=== PATIENT | female | born 1960 | race Caucasian/White ===

== ENCOUNTER 2017-04-12 19:12 | Emergency (ER) | payer MEDICARE, OTHER ==
[2017-04-12 19:32] VITALS: BP 145/104
--- NOTE | 2017-04-12 20:44 | EDM.PDOC ---
ED HPI GENERAL MEDICAL PROBLEM - General Chief Complaint: Genitourinary Problem Stated Complaint: PAINFUL URINATION Time Seen by Provider: 04/12/17 19:22 Source of Information: Reports: Patient, RN Notes Reviewed History Limitations: Reports: No Limitations - History of Present Illness INITIAL COMMENTS - FREE TEXT/NARRATIVE: The patient states that she and her drove to [place], then drove back this past 04/09/2017. She states that she held onto her urine too long during the drive, and has developed dysuria. She increased her water intake, which improved her symptoms yesterday, but then she developed suprapubic pain and dysuria despite increased water intake today. She notes that her urine is malodorous today. She has urinary urgency and may have urinary frequency. Her suprapubic pain is worse if she is sitting, better if she is supine. The pain does not radiate. No lower back or flank pain. The patient has had similar symptoms in the past, due to a UTI. The patient's PCP is Luis Martin - she has not contacted him about this issue. 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 Bladder Pain Score (Numeric/FACES): 5 - Related Data Allergies Allergy/AdvReac Type Severity Reaction Status Date / Time Penicillins Allergy Mild Rash Verified 04/12/17 19:32 Home Meds: Home Meds Albuterol Sulfate [Proventil Hfa] 1 - 2 puff IH Q4HR PRN 01/30/16 [History] Pantoprazole Sodium [Protonix] 40 mg PO DAILY 01/30/16 [History] Fish Oil/Rosebud-3 Fatty Acids [Fish Oil 1,000 MG] 1 cap PO DAILY 05/19/16 [ History] Acetaminophen [Tylenol] 650 mg PO Q4H PRN #0 tablet 05/21/16 [Rx] Acetaminophen/oxyCODONE [Percocet 325-5 MG] 1 tab PO Q8H PRN #20 tablet [Rx] Past Medical History HEENT History: Reports: Impaired Vision Other HEENT History: wears glasses Gastrointestinal History: Reports: Colon Polyp, GERD, PUD Genitourinary History: Reports: Urinary Incontinence 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: Musculoskeletal History: Reports: Osteoarthritis (knees) Endocrine/Metabolic History: Reports: Diabetes, Type II, Obesity/BMI 30+ - Past Surgical History GI Surgical History: Reports: Appendectomy, Cholecystectomy, Hernia, Abdominal Female Surgical History: Reports: Hysterectomy, Salpingo-Oophorectomy Musculoskeletal Surgical History: Reports: ORIF (right ankle) Social & Family History - Family History HEENT: Reports: Cataract Cardiac: Reports: High Cholesterol, Other (See Below) Other Cardiac Family History: baby born with heart problems who at approx 4 months of age Respiratory: Reports: Sleep Apnea OBGYN: Reports: Dysfunctional uterine bleeding Musculoskeletal: Reports: Gout, Osteoarthritis Neurological: Reports: Alzheimers Disease Endocrine/Metabolic: Reports: Diabetes, Type I Hematologic: Reports: Bleeding Disorder Oncologic: Reports: Bladder, Breast, Cervix, Colon - Tobacco Use Smoking Status *Q: Current Some Day Smoker Years of Tobacco use: 45 Packs/Tins Daily: 0.1 Packs/Tins Daily Comment: Down from 4 ppd - Caffeine Use Caffeine Use: Reports: Coffee - Alcohol Use Alcohol Use History: Yes Days Per Week of Alcohol Use: 0 Alcohol Use Frequency: Rarely - Recreational Drug Use Recreational Drug Use: No - Living Situation & Occupation Living situation: Reports: , with Significant Other Occupation: Unemployed ED ROS GENERAL - Review of Systems Review Of Systems: See Below Constitutional: Reports: No Symptoms HEENT: Reports: No Symptoms Respiratory: Reports: No Symptoms Cardiovascular: Reports: No Symptoms Endocrine: Reports: No Symptoms GI/Abdominal: Reports: No Symptoms : Reports: No Symptoms Musculoskeletal: Reports: No Symptoms Skin: Reports: No Symptoms Neurological: Reports: No Symptoms Psychiatric: Reports: No Symptoms Hematologic/Lymphatic: Reports: No Symptoms Immunologic: Reports: No Symptoms ED EXAM, RENAL/ - Physical Exam Exam: See Below Exam Limited By: No Limitations General Appearance: Alert, WD/WN, No Apparent Distress Eye Exam: Bilateral Eye: Normal Inspection Ears: Normal External Exam, Hearing Grossly Normal Nose: Normal Inspection, No Blood Throat/Mouth: Normal Inspection, Normal Lips, Normal Voice, No Airway Compromise Head: Atraumatic, Normocephalic Neck: Normal Inspection, Full Range of Motion Respiratory/Chest: No Respiratory Distress, Lungs Clear, Normal Breath Sounds, No Accessory Muscle Use Cardiovascular: Normal Peripheral Pulses, Regular Rate, Rhythm, No Gallop, No JVD, No Murmur, No Rub GI/Abdominal: Normal Bowel Sounds, Soft, No Organomegaly, No Distention, No Abnormal Bruit, No Mass, Tender (Suprapubic only. Nontender elsewhere.), Other ( Obese) (Female) Exam: Deferred Rectal (Female) Exam: Deferred Back Exam: Normal Inspection, Full Range of Motion. No: CVA Tenderness (L), CVA Tenderness (R) Extremities: Normal Inspection, Normal Range of Motion, No Pedal Edema, Normal Capillary Refill Neurological: Alert, Oriented, Normal Cognition, No Motor/Sensory Deficits Psychiatric: Normal Affect Skin Exam: Warm, Dry, Intact, Normal Color, No Rash Lymphatic: No Adenopathy Course - Vital Signs Last Recorded V/S: Last Vital Signs Temp 36.1 C 04/12/17 19:30 Pulse 102 H 04/12/17 19:30 Resp 16 04/12/17 19:30 BP 145/104 H 04/12/17 19:30 Pulse Ox 98 04/12/17 19:30 - Orders/Labs/Meds Labs: Laboratory Tests 04/12/17 Range/Units 20:07 Urine Color Yellow (Yellow) Urine Appearance Clear (Clear) Urine pH 5.5 (5.0-8.0) Ur Specific [place] > or = 1.030 (1.005-1.030) Urine Protein Negative (Negative) Urine Glucose (UA) Negative (Negative) Urine Ketones Negative (Negative) Urine Occult Blood Negative (Negative) Urine Nitrite Negative (Negative) Urine Bilirubin Negative (Negative) Urine Urobilinogen 0.2 (0.2-1.0) Ur Leukocyte Esterase Negative (Negative) Urine RBC Not seen (0-5) /hpf Urine WBC 0-5 (0-5) /hpf Ur Epithelial Cells 0-5 (0-5) /hpf Urine Bacteria Not seen (FEW) /hpf Urine Mucus Not seen (FEW) /hpf - Re-Assessments/Exams Free Text/Narrative Re-Assessment/Exam: 04/12/17 20:40 Urinalysis results discussed with the patient. The patient's urine is completely normal, with no suggestion of a UTI. Her symptoms are most likely due to interstitial cystitis. I will have her take [id number] Azo, and refer her to Dr. Summers for further evaluation. Departure - Departure Time of Disposition: 20:41 Disposition: Home, Self-Care 01 Condition: Good Clinical Impression: Interstitial cystitis - Discharge Information Instructions: Interstitial Cystitis Referrals: Luis Martin PA-C [Primary Care Provider] - Ryland Summers MD [Physician] - Forms: ED Department Discharge Additional Instructions: You were seen in the emergency room for painful urination and lower central abdominal pain. Evaluation in the ER included a urinalysis, which returned completely normal. You do not have a UTI. Your symptoms are MOST LIKELY due to a condition called interstitial cystitis = irritation of the bladder without a UTI. We recommend you take [id number] "Azo". You may take a total of 6 doses, either 3 doses a day for 2 days, or 2 doses a day for 3 days. Azo will turn your urine orange - this is normal. Stay adequately hydrated, however, we recommend you abstain from consuming any caffeine presently. Follow-up with the Urologist Dr. Summers at the next available appointment. If any other problems, please do not hesitate to return to the ER.
== END 2017-04-12 20:55 | disposition home or self-care (01) ==
LOC: JD.ED 19:12
DX: N30.10 Interstitial cystitis (chronic) without hematuria (principal); K21.9 Gastro-esophageal reflux disease without esophagitis; E11.9 Type 2 diabetes mellitus without complications; E66.9 Obesity, unspecified; M17.0 Bilateral primary osteoarthritis of knee; Z90.49 Acquired absence of other specified parts of digestive tract; Z90.710 Acquired absence of both cervix and uterus; Z98.890 Other specified postprocedural states; F17.210 Nicotine dependence, cigarettes, uncomplicated; Z79.899 Other long term (current) drug therapy; Z88.0 Allergy status to penicillin; Z68.42 Body mass index [BMI] 45.0-49.9, adult
CPT/HCPCS: 81001; 99283; P9612; 99282

== ENCOUNTER 2017-07-12 06:58 | Day surgery (SDC) | payer MEDICARE, OTHER ==
[~2017-07-12 06:58] MED LIST: Lactated Ringers 1,000 ML IV SCH; Lidocaine 1%/Sod Bicarbonate in NS 8.4% 1 ML Syringe PRN; Sodium Chloride 0.9% 10 ML Syringe FLUSH PRN
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
[2017-07-12] MEDS ORDERED: Propofol 200 MG/20 ML SDV ONE ×2 (07:42→08:56)
[2017-07-12] MEDS ORDERED: Midazolam 1 MG/ML 2 ML SDV ONE (07:42)
[2017-07-12] MEDS ORDERED: fentaNYL 100 MCG/2 ML SDV ONE (07:42)
--- NOTE | 2017-07-12 08:47 | PCM48HPAN ---
Post Anesthesia Note - EVALUATION WITHIN 48HRS OF ANESTHETIC Vital Signs in Normal Range: Yes Patient Participated in Evaluation: Yes Respiratory Function Stable: Yes Airway Patent: Yes Cardiovascular Function Stable: Yes Hydration Status Stable: Yes Pain Control Satisfactory: Yes Nausea and Vomiting Control Satisfactory: Yes Mental Status Recovered: Yes
--- NOTE | 2017-07-12 08:50 | PCM.OPNOTE ---
- General Post-Op/Procedure Note Date of Surgery/Procedure: 07/12/17 Operative Procedure(s): egd with bx/colonoscopy Pre Op Diagnosis: rectal bleeding dysphagia Post-Op Diagnosis: Same Anesthesia Technique: MAC Primary Surgeon: Ryan Santacruz EBL in mLs: 0 Complications: None Condition: Good
[2017-07-12 10:28] VITALS: BP 120/73
--- NOTE | 2017-07-13 09:51 | OR ---
DATE OF OPERATION: 07/12/2017 SURGEON: Ryan Santacruz MD PREOPERATIVE DIAGNOSIS: Rectal bleeding. POSTOPERATIVE DIAGNOSIS: Rectal bleeding. OPERATION PERFORMED: Diagnostic colonoscopy. FINDINGS: Internal hemorrhoids. There were no angiodysplasias, neoplasias, large tumor masses, ulcerations, or diverticulum. The prep was [place] cleansing score grade B. Areas in the sigmoid colon and rectum could not be completely evacuated because of the coarse fecal matter that plugged the channel. ANESTHESIA: Procedure done under IV sedation. DESCRIPTION OF PROCEDURE: The patient was taken to the operating room. Having been placed in a supine position and connected to monitoring equipment, given IV sedation for upper GI endoscopy, this was continued for colonoscopy. She was placed in the left lateral position. Perianal area showed pouting hemorrhoids. Rectal exam showed good sphincter tone. A video Olympus colonoscope was then introduced into the rectum and threaded up without problem to the cecum, where the ileocecal valve was noted. Prep was good throughout the colon. [place] cleansing score grade B. The scope was slowly withdrawn showing the cecum, ascending colon, transverse colon, descending colon, sigmoid colon, and rectum. Retroflexed view could not be done because of the fecal matter. The patient tolerated the procedure. Internal hemorrhoids were felt to be the source of rectal bleeding. She will be followed up in the clinic. She was sent to the recovery room in a stable condition. ESTIMATED BLOOD LOSS: MMODAL /[id number]
--- NOTE | 2017-07-13 09:51 | OR ---
DATE OF OPERATION: 07/12/2017 SURGEON: Rayn Santacruz MD PREOPERATIVE DIAGNOSIS: Gastroesophageal reflux disease and dysphagia. POSTOPERATIVE DIAGNOSIS: Gastroesophageal reflux disease and dysphagia. OPERATION PERFORMED: Esophagogastroduodenoscopy with biopsy done under IV sedation. FINDINGS: Hiatal hernia at GE junction located at 35 cm with area of irregularity with advanced gastric mucosa for about 1 cm. This area was biopsied. Second portion of the duodenum, duodenal bulb, pyloric channel, antrum, body, and cardia and fundus of the stomach and balance of the esophagus did not show any abnormality. DESCRIPTION OF PROCEDURE: The patient was taken to the endoscopy room, placed in a supine position, connected to monitoring equipment, given IV sedation. The patient was placed in left lateral position. Bite block was inserted. Video Olympus gastroscope placed in the posterior oropharynx. Under direct vision threaded past the cricopharyngeus down the esophagus into the stomach. Stomach was insufflated and the scope passed through the pylorus to the second portion of the duodenum and was then slowly withdrawn showing second portion of the duodenum, duodenal bulb, pyloric channel all normal. Antrum, body and cardia stomach were viewed and were normal. J-maneuver was performed showing the above incompetence hiatus. The scope was withdrawn to the GE junction which was biopsied. The rest of the esophagus viewed as the scope withdrawn. The patient tolerated the procedure. Specimen sent to pathology in a labeled container. The patient's IV sedation continued and will get rid of the wound care. The patient's IV sedation will be continued for colonoscopy. ANESTHESIA: ESTIMATED BLOOD LOSS: MMODAL /[id number]
== END 2017-07-12 09:51 | disposition home or self-care (01) ==
LOC: JD.SDS 06:58
PROVIDERS: ATTEND Surgery
DX: K64.8 Other hemorrhoids (principal); K44.9 Diaphragmatic hernia without obstruction or gangrene; Z88.0 Allergy status to penicillin; Z88.1 Allergy status to other antibiotic agents; E78.00 Pure hypercholesterolemia, unspecified; J44.9 Chronic obstructive pulmonary disease, unspecified; K21.9 Gastro-esophageal reflux disease without esophagitis; J18.9 Pneumonia, unspecified organism; E11.9 Type 2 diabetes mellitus without complications; E66.9 Obesity, unspecified; Z90.49 Acquired absence of other specified parts of digestive tract; Z90.710 Acquired absence of both cervix and uterus; Z98.890 Other specified postprocedural states; F17.210 Nicotine dependence, cigarettes, uncomplicated; Z79.899 Other long term (current) drug therapy; Z68.43 Body mass index [BMI] 50.0-59.9, adult
CPT/HCPCS: 43239; 45378; J2250; J3010; J7120; 00810; 88305; J2704

== ENCOUNTER 2018-02-12 12:52 | Emergency (ER) | payer MEDICARE, OTHER ==
[2018-02-12 13:04] VITALS: BP 149/87
[2018-02-12] MEDS ORDERED: Sodium Chloride 0.9% 1,000 ML IV STA (13:10)
[2018-02-12] MEDS ORDERED: Ondansetron 4 MG/2 ML SDV IVPUSH ONE (13:10)
[2018-02-12] MEDS ORDERED: Sodium Chloride 0.9% 10 ML Syringe FLUSH PRN (13:10)
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
== END 2018-02-12 17:05 | disposition home or self-care (01) ==
LOC: JD.ED 12:52
DX: R19.7 Diarrhea, unspecified (principal); E78.00 Pure hypercholesterolemia, unspecified; K21.9 Gastro-esophageal reflux disease without esophagitis; E11.9 Type 2 diabetes mellitus without complications; Z88.0 Allergy status to penicillin; Z88.1 Allergy status to other antibiotic agents; Z79.899 Other long term (current) drug therapy; Z87.891 Personal history of nicotine dependence
CPT/HCPCS: 36415; 80053; 81001; 83690; 85025; 96361; 96374; 99284; J2405; J7040; J7050

== ENCOUNTER 2019-02-08 19:26 | Emergency (ER) | payer MEDICARE, OTHER ==
[2019-02-08 19:44] VITALS: BP 141/95
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
--- NOTE | 2019-02-09 09:43 | CR ---
Chest: Two views of the chest were obtained. Comparison: Previous chest x-ray of 08/26/16. Heart size and mediastinum are normal. Lungs are clear. Slight degenerative change is noted within the spine. Impression: 1. Nothing acute is appreciated on two-view chest x-ray. Diagnostic code #1
== END 2019-02-08 21:45 | disposition home or self-care (01) ==
LOC: JD.ED 19:26
DX: M54.6 Pain in thoracic spine (principal); E11.9 Type 2 diabetes mellitus without complications; E66.9 Obesity, unspecified; K21.9 Gastro-esophageal reflux disease without esophagitis; Z90.49 Acquired absence of other specified parts of digestive tract; Z90.710 Acquired absence of both cervix and uterus; Z79.899 Other long term (current) drug therapy; Z88.0 Allergy status to penicillin
CPT/HCPCS: 36415; 71046; 71046-26; 80053; 83735; 84484; 85007; 85027; 93005; 93010; 99283; 99284-25

== ENCOUNTER 2019-02-09 11:19 | Day surgery (SDC) | payer MEDICARE, OTHER ==
[~2019-02-09 11:19] MED LIST changes: +Cefuroxime 10 MG/ML SYRINGE EYELF SCH; -Lactated Ringers 1,000 ML IV SCH; +Lidocaine 1% PF 2 ML SDV INJECT SCH; -Lidocaine 1%/Sod Bicarbonate in NS 8.4% 1 ML Syringe PRN; +Pilocarpine 4% Ophth Soln 15 ML Bot EYELF SCH; -Sodium Chloride 0.9% 10 ML Syringe FLUSH PRN
[2019-02-09] MEDS: Polymyxin B/Trimethoprim 10 ML Bottle EYELF SCH ×3 (11:32→13:03)
[2019-02-09] MEDS: Brimonidine 0.2% Ophth Soln 5 ML Bottle EYELF SCH ×3 (11:38→13:03)
[2019-02-09] MEDS: Phenylephrine 2.5% Ophth Soln 2 ML Bot EYELF SCH ×5 (11:43→12:48)
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
[2019-02-09] MEDS: Tropicamide 1% Ophth Soln 15 ML Bottle EYELF SCH ×4 (11:49→12:30)
[2019-02-09] MEDS: Tetracaine HCl/PF 0.5% 4 ML Bottle EYELF SCH ×4 (12:35→12:58)
--- NOTE | 2019-02-09 13:12 | PCM.POSTAN ---
POST ANESTHESIA ASSESSMENT - MENTAL STATUS Mental Status: Alert - CARDIOVASCULAR CV Status: Pulse Rate WNL - GASTROINTESTINAL GI Status: No Symptoms - POST OP HYDRATION Hydration Status: Adequate & Stable
--- NOTE | 2019-02-09 13:13 | PCM48HPAN ---
Post Anesthesia Note - EVALUATION WITHIN 48HRS OF ANESTHETIC Patient Participated in Evaluation: Yes Respiratory Function Stable: Yes Airway Patent: Yes Cardiovascular Function Stable: Yes Hydration Status Stable: Yes Pain Control Satisfactory: Yes Nausea and Vomiting Control Satisfactory: Yes Mental Status Recovered: Yes Resp Rate: 16
[2019-02-09 13:21] VITALS: BP 151/47
== END 2019-02-09 13:18 | disposition home or self-care (01) ==
LOC: JD.SDS 11:19
PROVIDERS: ATTEND Ophthalmology
DX: H25.813 Combined forms of age-related cataract, bilateral (principal); H35.371 Puckering of macula, right eye; H02.834 Dermatochalasis of left upper eyelid; H02.831 Dermatochalasis of right upper eyelid; H02.413 Mechanical ptosis of bilateral eyelids; H16.103 Unspecified superficial keratitis, bilateral; H16.223 Keratoconjunctivitis sicca, not specified as Sjogren's, bilateral; E11.9 Type 2 diabetes mellitus without complications; E78.00 Pure hypercholesterolemia, unspecified; J44.9 Chronic obstructive pulmonary disease, unspecified; K21.9 Gastro-esophageal reflux disease without esophagitis; F17.210 Nicotine dependence, cigarettes, uncomplicated; Z88.0 Allergy status to penicillin; Z79.899 Other long term (current) drug therapy
CPT/HCPCS: 66984; C1780; J0697; J2001

== ENCOUNTER 2019-03-06 11:24 | Day surgery (SDC) | payer MEDICARE, OTHER ==
[~2019-03-06 11:24] MED LIST changes: +Brimonidine 0.2% Ophth Soln 5 ML Bottle EYERT SCH; -Cefuroxime 10 MG/ML SYRINGE EYELF SCH; -Lidocaine 1% PF 2 ML SDV INJECT SCH; -Pilocarpine 4% Ophth Soln 15 ML Bot EYELF SCH
[2019-03-06] MEDS: Polymyxin B/Trimethoprim 10 ML Bottle EYERT SCH ×4 (12:58→14:30)
[2019-03-06] MEDS: Brimonidine 0.2% Ophth Soln 15 ML Bottle EYERT SCH ×4 (13:03→14:30)
[2019-03-06] MEDS: Phenylephrine 2.5% Ophth Soln 2 ML Bot EYERT SCH ×6 (13:08→14:12)
[2019-03-06] MEDS: Tropicamide 1% Ophth Soln 15 ML Bottle EYERT SCH ×4 (13:13→13:57)
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
[2019-03-06] MEDS: Lidocaine 1% PF 2 ML SDV INJECT SCH ×2 (13:18→14:16)
[2019-03-06] MEDS: Pilocarpine 4% Ophth Soln 15 ML Bot EYERT SCH ×2 (13:19→14:30)
[2019-03-06] MEDS: Tetracaine HCl/PF 0.5% 4 ML Bottle EYERT SCH ×3 (13:19→14:25)
[2019-03-06] MEDS: Cefuroxime 10 MG/ML SYRINGE EYERT SCH ×2 (13:19→14:28)
--- NOTE | 2019-03-06 14:39 | PCM48HPAN ---
Post Anesthesia Note - EVALUATION WITHIN 48HRS OF ANESTHETIC Vital Signs in Normal Range: Yes Patient Participated in Evaluation: Yes Respiratory Function Stable: Yes Airway Patent: Yes Cardiovascular Function Stable: Yes Hydration Status Stable: Yes Pain Control Satisfactory: Yes Nausea and Vomiting Control Satisfactory: Yes Mental Status Recovered: Yes Pulse Rate: 75 SaO2: 100 Resp Rate: 16 Temperature: 98.9 C Blood Pressure: 130/65
[2019-03-06 15:19] VITALS: BP 129/70
== END 2019-03-06 15:06 | disposition home or self-care (01) ==
LOC: JD.SDS 11:24
PROVIDERS: ATTEND Ophthalmology
DX: H25.811 Combined forms of age-related cataract, right eye (principal); H35.371 Puckering of macula, right eye; H02.834 Dermatochalasis of left upper eyelid; H02.831 Dermatochalasis of right upper eyelid; H57.813 Brow ptosis, bilateral; H16.103 Unspecified superficial keratitis, bilateral; H16.223 Keratoconjunctivitis sicca, not specified as Sjogren's, bilateral; E78.00 Pure hypercholesterolemia, unspecified; K21.9 Gastro-esophageal reflux disease without esophagitis; J44.9 Chronic obstructive pulmonary disease, unspecified; E11.9 Type 2 diabetes mellitus without complications; F17.210 Nicotine dependence, cigarettes, uncomplicated; E66.9 Obesity, unspecified; Z68.42 Body mass index [BMI] 45.0-49.9, adult; Z96.1 Presence of intraocular lens; Z98.890 Other specified postprocedural states; Z79.899 Other long term (current) drug therapy; Z79.51 Long term (current) use of inhaled steroids; Z88.0 Allergy status to penicillin
CPT/HCPCS: 66984; J0697; J2001; C1780

== ENCOUNTER 2019-03-13 18:08 | Emergency (ER) | payer MEDICARE, OTHER ==
[2019-03-13 18:30] VITALS: BP 144/79
[2019-03-13] MEDS ORDERED: Acetaminophen/HYDROcodone 325-5 MG Tab PO ONE (18:34)
--- NOTE | 2019-03-13 18:44 | EDM.PDOC ---
ED HPI GENERAL MEDICAL PROBLEM - General Chief Complaint: Lower Extremity Injury/Pain Stated Complaint: L KNEE PAIN/FALL Time Seen by Provider: 03/13/19 18:17 Source of Information: Reports: Patient, RN Notes Reviewed History Limitations: Reports: No Limitations - History of Present Illness INITIAL COMMENTS - FREE TEXT/NARRATIVE: The patient states that she tripped and fell in her home parking lot around 15: 00 this afternoon, landing on her left leg and injuring her left knee. She states that she was wearing slippers. She states that she was able to ambulate inside, but that her left knee pain got worse. She was able to drive herself to the ED, but states that her left knee pain is constant, made worse with weightbearing and ambulation. In addition to left leg pain, the patient also reports an abrasion to her right first MTP joint, as well as a skin tear to her left forearm. 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 The patient's PCP is ANNA Velasquez. Left Lower Leg Pain Score (Numeric/FACES): 10 - Related Data Allergies Allergy/AdvReac Type Severity Reaction Status Date / Time Penicillins Allergy Mild Rash Verified 03/13/19 18:19 Home Meds: Home Meds Pantoprazole Sodium [Protonix] 40 mg PO BID 01/30/16 [History] Sucralfate [Carafate] 1 gm PO QID PRN 07/09/17 [History] Albuterol [Proventil HFA] 1 - 2 puff INH Q4H PRN 02/08/19 [History] Cholecalciferol (Vitamin D3) [Vitamin D3] 1,000 unit PO DAILY 02/08/19 [History] Vit A/Vit C/Vit E/Zinc/Copper [Preservision Areds Softgel] 1 tab PO Q48H [History] atorvaSTATin Calcium [Atorvastatin Calcium] 40 mg PO DAILY 02/08/19 [History] Fluticasone/Salmeterol [Advair 500-50] 1 puff INH ASDIRECTED PRN 03/13/19 [ History] Tetrahydrz/Dext 70/Peg 400/Pvp [Eye Drops] 15 ml OP QID 03/13/19 [History] Past Medical History HEENT History: Reports: Impaired Vision Other HEENT History: wears glasses, has upper denture Cardiovascular History: Reports: High Cholesterol Respiratory History: Reports: COPD Gastrointestinal History: Reports: Colon Polyp, GERD, Hiatal Hernia, PUD Genitourinary History: Reports: Urinary Incontinence 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: Musculoskeletal History: Reports: Fracture (right ankle), Osteoarthritis ( bilateral knees) Endocrine/Metabolic History: Reports: Diabetes, Type II, Obesity/BMI 30+ - Past Surgical History HEENT Surgical History: Reports: Cataract Surgery (bilateral) GI Surgical History: Reports: Appendectomy, Cholecystectomy (1993), Colonoscopy (x 5), EGD (x 4), Hernia, Abdominal Female Surgical History: Reports: Hysterectomy (complete), Salpingo- Oophorectomy (bilateral) Musculoskeletal Surgical History: Reports: ORIF (right ankle) Social & Family History - Family History Family Medical History: Noncontributory HEENT: Reports: Cataract Cardiac: Reports: High Cholesterol, Other (See Below) Other Cardiac Family History: baby born with heart problems who at approx 4 months of age Respiratory: Reports: Sleep Apnea OBGYN: Reports: Dysfunctional uterine bleeding Musculoskeletal: Reports: Gout, Osteoarthritis Neurological: Reports: Alzheimers Disease Endocrine/Metabolic: Reports: Diabetes, Type I Hematologic: Reports: Bleeding Disorder Oncologic: Reports: Bladder, Breast, Cervix, Colon - Tobacco Use Smoking Status *Q: Current Some Day Smoker Years of Tobacco use: 47 Packs/Tins Daily: 0.2 Packs/Tins Daily Comment: Down from 4 ppd - Caffeine Use Caffeine Use: Reports: Coffee - Alcohol Use Alcohol Use History: Yes Date/Time of Last Drink Comment: 2016 - Recreational Drug Use Recreational Drug Use: No - Living Situation & Occupation Living situation: Reports: , with Significant Other (Boyfriend) Occupation: Unemployed Review of Systems - Review of Systems Review Of Systems: ROS reveals no pertinent complaints other than HPI. ED EXAM, GENERAL - Physical Exam Exam: See Below Exam Limited By: No Limitations General Appearance: Alert, WD/WN, Mild Distress (Appears uncomfortable) Extremities: Other (The left knee is swollen, when compared to the right, and there is a subtle abrasion to the anterolateral left knee, although no ecchymosis is seen. The patient denies tenderness to the quadriceps tendon, although reports some tenderness to the patellar tendon and anterior patella. No tenderness to the medial knee, but she has mild tenderness to the lateral knee and posterior knee. She reports pain with flexion, and I am unable to flex the knee beyond 90, due to pain. Stressing of the medial and lateral collateral ligaments is negative, as is the anterior and posterior drawer sign. The patient reports mild tenderness to palpation of the tibia, but palpation of the tibia does not induce pain in the knee. She reports pain radiating down her leg, however, the examination of her left ankle is completely normal. Neurovascular status of her left lower extremity is intact. There is a small abrasion to the medial aspect of her right first MTP joint. There is an approximately 2 cm skin tear to her mid left forearm.) Course - Vital Signs Last Recorded V/S: Last Vital Signs Temp 36.4 C 03/13/19 18:27 Pulse 95 03/13/19 18:27 Resp 18 03/13/19 18:27 BP 144/79 H 03/13/19 18:27 Pulse Ox 95 03/13/19 18:27 - Orders/Labs/Meds Orders: Active Orders 24 hr Category Date Time Status Knee 3V Lt [CR] Stat Exams 03/13/19 18:34 Ordered Tibia Fibula Lt [CR] Stat Exams 03/13/19 18:34 Ordered Meds: Medications Discontinued Medications Generic Name Dose Route Start Last Admin Trade Name Freq PRN Reason Stop Dose Admin Hydrocodone Bitart/Acetaminophen 2 tab 03/13/19 18:34 03/13/19 18:40 [place] 325-5 Mg PO 03/13/19 18:35 2 tab ONETIME ONE Administration - Re-Assessments/Exams Free Text/Narrative Re-Assessment/Exam: 03/13/19 18:38 Have ordered x-rays of her left knee and tibia/fibula, to rule out a tibial plateau fracture. While the patient states that pain radiates down to her ankle , her left ankle examination is completely benign. The patient drove herself here, but assured Sobia AGOSTO and me that she can get a ride from her boyfriend, therefore I have ordered 2 tablets of [place]. 03/13/19 20:02 There was a significant delay in acquiring the x-rays, as the vtc technician was involved in a difficult CT angiogram of the chest on another patient. 2-view radiographs of the left knee appear to demonstrate advanced degenerative joint disease, with bone spurs noted at the Ultracet ligament, and a well- rounded piece of bone posterior to the distal fibula, however, no acute fractures or dislocations identified. Formal read per the Radiologist pending. 2 view radiographs of the left tibia/fibula appear to be grossly unremarkable. No fracture or dislocation identified. Formal read per the Radiologist pending. 03/13/19 20:12 X-ray results discussed with the patient, her neighbor, and her boyfriend. As above, the patient's trays are negative for an acute injury. She appears to have contused her left knee. Because she has pain with weightbearing and ambulation, I recommended that we fit her for crutches, but the patient states that she is simply too uncoordinated to be able to use crutches, and that she will fall down. She states that she cannot even use a walker. She prefers a knee immobilizer. I am recommending ice, elevation, ibuprofen, and follow-up with Dr. Gonzales at the next available appointment. Departure - Departure Time of Disposition: 20:13 Disposition: Home, Self-Care 01 Condition: Good Clinical Impression: Contusion of left knee, Skin tear of left forearm without complication, Abrasion of right foot - Discharge Information *PRESCRIPTION DRUG MONITORING PROGRAM REVIEWED*: Not Applicable *COPY OF PRESCRIPTION DRUG MONITORING REPORT IN PATIENT GUY: Not Applicable Referrals: Tatum Ndiaye PA-C [Primary Care Provider] - Trey Gonzales MD [Physician] - Forms: ED Department Discharge Additional Instructions: You were seen in the emergency room after tripping and falling in your parking lot, injuring your right knee, right foot, and left forearm. Workup in the ER included x-rays of your left knee and left leg. Your x-rays show advanced arthritis in the knee, but no broken bones or dislocations. Based on your history, physical exam, and ER x-rays, you have most likely contused (bruised) your left knee. Crutches were offered, but declined. You have been placed into a knee immobilizer. The knee immobilizer goes over your clothes, and should be placed in the morning, and removed at bedtime. Try to ice and elevate your left knee as much as possible over the next 48 hours , to help minimize swelling. Keep your left forearm skin tear clean with ordinary soap and water when you bathe, daily. Dress with a fresh nonstick bandage. Take [id number] ibuprofen, 3-4 tablets (600-800 mg) every 8 hours, with food, as needed for discomfort. Follow-up with the Orthopedic Surgeon Dr. Trey Gonzales at the next available appointment. If any other problems, please do not hesitate to return to the ER. - My Orders Last 24 Hours: My Active Orders 03/13/19 18:34 Knee 3V Lt [CR] Stat Tibia Fibula Lt [CR] Stat - Assessment/Plan Last 24 Hours: My Active Orders 03/13/19 18:34 Knee 3V Lt [CR] Stat Tibia Fibula Lt [CR] Stat
--- NOTE | 2019-03-14 07:26 | CR ---
Left knee: AP, lateral and sunrise patellar views of the left knee were obtained. Comparison: Previous left knee exam is not available. Severe medial joint space narrowing is noted with medial osteophytes. Lateral joint space is preserved with lateral osteophytes being present. Osteophytes are noted within the patellofemoral joint. Joint effusion is present. No acute bony abnormality is seen. Impression: 1. Degenerative change and joint effusion. Diagnostic code #3
--- NOTE | 2019-03-14 08:06 | CR ---
Left tibia and fibula: AP and lateral views of left tibia and fibula were obtained. Degenerative change is again noted within the left knee with joint effusion. No discrete fracture or other abnormality is appreciated. Impression: 1. Findings within the left knee as described on knee exam. 2. Nothing acute is seen on left tibia and fibula exam. Diagnostic code #2
== END 2019-03-13 20:30 | disposition home or self-care (01) ==
LOC: JD.ED 18:08
DX: S51.812A Laceration without foreign body of left forearm, initial encounter (principal); S80.02XA Contusion of left knee, initial encounter; S90.811A Abrasion, right foot, initial encounter; J44.9 Chronic obstructive pulmonary disease, unspecified; K21.9 Gastro-esophageal reflux disease without esophagitis; E11.9 Type 2 diabetes mellitus without complications; E66.9 Obesity, unspecified; M19.90 Unspecified osteoarthritis, unspecified site; F17.210 Nicotine dependence, cigarettes, uncomplicated; Z88.0 Allergy status to penicillin; Z79.899 Other long term (current) drug therapy; Z98.41 Cataract extraction status, right eye; Z98.42 Cataract extraction status, left eye; Z90.49 Acquired absence of other specified parts of digestive tract; Z90.710 Acquired absence of both cervix and uterus; Z90.722 Acquired absence of ovaries, bilateral; W01.0XXA Fall on same level from slipping, tripping and stumbling without subsequent striking against object, initial encounter
CPT/HCPCS: 73562; 73590; 99283; A9270

== ENCOUNTER 2019-08-27 09:22 | Emergency (ER) | payer MEDICARE, OTHER ==
[2019-08-27 09:42] VITALS: BP 150/83; PULSE 86
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
[2019-08-27] MEDS ORDERED: Phenazopyridine 95 MG Tab ONE (10:20)
[2019-08-27] MEDS ORDERED: Levofloxacin 250 MG Tab PO ONE (11:18)
[2019-08-27] MEDS ORDERED: Phenazopyridine 95 MG Tab PO ONE (11:19)
[2019-08-27] MEDS ORDERED: Phenazopyridine 95 MG Tab PO SCH (13:00)
--- NOTE | 2019-08-28 06:32 | CR ---
Abdomen: Supine view of the abdomen was obtained. Comparison: Prior abdominal x-ray of 11/17/11. Prior cholecystectomy is noted. Bowel gas pattern is normal. No abnormal calcifications or soft tissue abnormality is seen. Bony structures are unremarkable. Impression: 1. Nothing acute is seen on supine abdominal x-ray. Diagnostic code #2 This report was dictated in [place] Standard Time
== END 2019-08-27 11:40 | disposition home or self-care (01) ==
LOC: JD.ED 09:22
DX: K59.01 Slow transit constipation (principal); N39.0 Urinary tract infection, site not specified; E78.00 Pure hypercholesterolemia, unspecified; J44.9 Chronic obstructive pulmonary disease, unspecified; K21.9 Gastro-esophageal reflux disease without esophagitis; M19.90 Unspecified osteoarthritis, unspecified site; E11.9 Type 2 diabetes mellitus without complications; E66.9 Obesity, unspecified; Z68.42 Body mass index [BMI] 45.0-49.9, adult; Z90.49 Acquired absence of other specified parts of digestive tract; Z88.0 Allergy status to penicillin; Z79.899 Other long term (current) drug therapy
CPT/HCPCS: 74018; 81001; 87086; 99284; A9270; 99283

== ENCOUNTER 2019-09-07 20:38 | Emergency (ER) | payer MEDICARE, OTHER ==
[2019-09-07 21:16] VITALS: BP 130/84; PULSE 96
[2019-09-07] MEDS ORDERED: Lactated Ringers 1,000 ML IV ONE (22:43)
[2019-09-07] MEDS ORDERED: Loperamide 2 MG Cap PO STA (22:44)
[2019-09-07] MEDS ORDERED: Ondansetron 4 MG/2 ML SDV IVPUSH ONE (22:46)
--- NOTE | 2019-09-07 22:47 | EDM.PDOC ---
ED HPI GENERAL MEDICAL PROBLEM - General Chief Complaint: Gastrointestinal Problem Stated Complaint: DIARRHEA Time Seen by Provider: 09/07/19 21:09 Source of Information: Reports: Patient, Significant Other (Fiance) History Limitations: Reports: No Limitations - History of Present Illness INITIAL COMMENTS - FREE TEXT/NARRATIVE: Ms. Giordaon is a very pleasant 58-year-old woman with a past medical history significant for a hiatal hernia with GERD, peptic ulcer disease, and colon polyps, due states that she developed watery diarrhea yesterday, Wednesday, , along with some nausea. She has not had any emesis, and has not had any abdominal pain. The frequent diarrhea, however, has flared her hemorrhoids, and she has had susanna blood when she wipes, but she denies having bloody diarrhea. She states that she has felt warm, but she has not had a documented fever. She also reports feeling lightheaded when she stands. The patient does not recall eating any bad-tasting or spoiled food recently. No similarly ill close contacts. No recent travel. No prior similar symptoms. The patient states that she was on an antibiotic, likely Levaquin, for 7 or 10 days, about 2 weeks ago, to treat a UTI. The patient states that she took Pepto-Bismol, which has not helped her symptoms at all. The patient's PCP is ANNA Velasquez. The patient has not received an influenza vaccine this season, but agreed to receive one here. Rectal Pain Score (Numeric/FACES): 8 - Related Data Allergies Allergy/AdvReac Type Severity Reaction Status Date / Time Penicillins Allergy Mild Rash Verified 09/07/19 21:13 Home Meds: Home Meds Pantoprazole Sodium [Protonix] 40 mg PO BID 01/30/16 [History] atorvaSTATin Calcium [Atorvastatin Calcium] 40 mg PO DAILY 02/08/19 [History] Ondansetron [Zofran ODT] 1 tab PO Q8H PRN #10 tab.dis 09/08/19 [Rx] Past Medical History HEENT History: Reports: Impaired Vision Other HEENT History: wears glasses, has upper denture Cardiovascular History: Reports: High Cholesterol Gastrointestinal History: Reports: Colon Polyp, GERD, Hemorrhoids, Hiatal Hernia , PUD Genitourinary History: Reports: Urinary Incontinence (stress incontinence) ORIGINATION SPECIALIST History: Reports: Musculoskeletal History: Reports: Fracture (right leg), Osteoarthritis ( bilateral knees) Endocrine/Metabolic History: Reports: Obesity/BMI 30+ - Past Surgical History HEENT Surgical History: Reports: Cataract Surgery GI Surgical History: Reports: Appendectomy, Cholecystectomy (1993), Colonoscopy (x 6 or 7), EGD (x 4), Hernia, Abdominal, Other (See Below) (Repair of "esophageal hernia" - Evelyn fundoplication?) Female Surgical History: Reports: Hysterectomy (complete) Musculoskeletal Surgical History: Reports: ORIF (right leg) Social & Family History - Family History Family Medical History: Noncontributory HEENT: Reports: Cataract Cardiac: Reports: High Cholesterol, Other (See Below) Other Cardiac Family History: baby born with heart problems who at approx 4 months of age Respiratory: Reports: Sleep Apnea OBGYN: Reports: Dysfunctional uterine bleeding Musculoskeletal: Reports: Gout, Osteoarthritis Neurological: Reports: Alzheimers Disease Endocrine/Metabolic: Reports: Diabetes, Type I Hematologic: Reports: Bleeding Disorder Oncologic: Reports: Bladder, Breast, Cervix, Colon - Tobacco Use Smoking Status *Q: Current Some Day Smoker Years of Tobacco use: 47 Packs/Tins Daily Comment: Down from 4 ppd - Caffeine Use Caffeine Use: Reports: Coffee - Alcohol Use Alcohol Use History: Yes Alcohol Use Frequency: Rarely - Recreational Drug Use Recreational Drug Use: No - Living Situation & Occupation Living situation: Reports: , with Significant Other (Fiance) Occupation: Employed ([employer]) ED ROS GENERAL - Review of Systems Review Of Systems: Comprehensive ROS is negative, except as noted in HPI. ED EXAM, GI/ABD - Physical Exam Exam: See Below Exam Limited By: No Limitations General Appearance: Alert, WD/WN, No Apparent Distress Eyes: Bilateral: Normal Appearance, EOMI Ears: Normal External Exam, Hearing Grossly Normal Nose: Normal Inspection Throat/Mouth: Normal Inspection, Normal Lips, Normal Voice, No Airway Compromise Head: Atraumatic, Normocephalic Neck: Normal Inspection, Full Range of Motion Respiratory/Chest: No Respiratory Distress, Lungs Clear, Normal Breath Sounds, No Accessory Muscle Use Cardiovascular: Normal Peripheral Pulses, Regular Rate, Rhythm, No Edema, No Gallop, No JVD, No Murmur, No Rub GI/Abdominal Exam: Normal Bowel Sounds, Soft, Non-Tender, No Organomegaly, No Distention, No Abnormal Bruit, No Mass (Female) Exam: Deferred Rectal (Female) Exam: Deferred Back Exam: Normal Inspection, Full Range of Motion. No: CVA Tenderness (L), CVA Tenderness (R) Extremities: Normal Inspection, Normal Range of Motion, No Pedal Edema, Normal Capillary Refill Neurological: Alert, Oriented, Normal Cognition, No Motor/Sensory Deficits Psychiatric: Normal Affect Skin Exam: Warm, Dry, Intact, Normal Color, No Rash Course - Vital Signs Last Recorded V/S: Last Vital Signs Temp 36.4 C 09/07/19 21:14 Pulse 96 09/07/19 21:14 Resp 18 09/07/19 21:14 BP 130/84 09/07/19 21:14 Pulse Ox 98 09/07/19 21:14 Orthostatic Blood Pressure [ 128/88 Standing] Orthostatic Blood Pressure [ 130/79 Sitting] Orthostatic Blood Pressure [ 108/49 Supine] - Orders/Labs/Meds Orders: Active Orders 24 hr Category Date Time Status Influenza Vaccine Charge [RC] .DISCHARGE Care 09/07/19 23:07 Active Orthostatic Vital Signs [RC] STAT Care 09/07/19 22:43 Active Labs: Laboratory Tests 09/07/19 09/07/19 Range/Units 23:15 23:15 WBC 10.21 H (3.98-10.04) K/mm3 RBC 5.01 (3.98-5.22) M/mm3 Hgb 14.5 (11.2-15.7) gm/dl Hct 44.0 (34.1-44.9) % MCV 87.8 (79.4-94.8) fl MCH 28.9 (25.6-32.2) pg MCHC 33.0 (32.2-35.5) g/dl RDW Std Deviation 46.5 H (36.4-46.3) fL Plt Count 193 (182-369) K/mm3 MPV 11.0 (9.4-12.3) fl Neutrophils % (Manual) 56 (40-60) % Band Neutrophils % 0 (0-10) % Lymphocytes % (Manual) 34 (20-40) % Atypical Lymphs % 0 % Monocytes % (Manual) 5 (2-10) % Eosinophils % (Manual) 5 (0.7-5.8) % Basophils % (Manual) 0 L (0.1-1.2) Platelet Estimate Adequate RBC Morph Comment Normal Sodium 141 (136-145) mEq/L Potassium 4.1 (3.5-5.1) mEq/L Chloride 106 (98-107) mEq/L Carbon Dioxide 26 (21-32) mEq/L Anion Gap 13.1 (5-15) BUN 19 H (7-18) mg/dL Creatinine 0.9 (0.55-1.02) mg/dL Est Cr Clr Drug Dosing 58.12 mL/min Estimated GFR (MDRD) > 60 (>60) mL/min BUN/Creatinine Ratio 21.1 H (14-18) Glucose 114 H (74-106) mg/dL Calcium 9.6 (8.5-10.1) mg/dL Magnesium 1.9 (1.8-2.4) mg/dl Total Bilirubin 0.4 (0.2-1.0) mg/dL AST 15 (15-37) U/L ALT 26 (14-59) U/L Alkaline Phosphatase 90 (46-116) U/L Total Protein 7.1 (6.4-8.2) g/dl Albumin 3.4 (3.4-5.0) g/dl Globulin 3.7 gm/dL Albumin/Globulin Ratio 0.9 L (1-2) Meds: Medications Discontinued Medications Generic Name Dose Route Start Last Admin Trade Name Freq PRN Reason Stop Dose Admin Lactated Ringer's 1,000 mls @ 999 mls/hr 09/07/19 22:43 09/07/19 23:14 Ringers, Lactated IV 09/07/19 23:43 999 mls/hr .BOLUS ONE Administration Influenza Virus Vaccine 60 mcg 09/07/19 23:30 Fluzone Quad [id number] Syringe IM 09/07/19 23:31 .ONCE ONE Loperamide HCl 4 mg 09/07/19 22:44 09/07/19 23:11 Imodium PO 09/07/19 22:45 4 mg ONETIME STA Administration Ondansetron HCl 4 mg 09/07/19 22:46 09/07/19 23:12 Zofran IVPUSH 09/07/19 22:47 4 mg ONETIME ONE Administration - Re-Assessments/Exams Free Text/Narrative Re-Assessment/Exam: 09/07/19 22:45 The patient has watery diarrhea and some nausea, but no recent fever, abdominal pain, or bloody diarrhea. Her diarrhea is most likely viral in etiology, although could potentially be due to a bacterial toxin. I do not suspect a bacterial infection, such as enterotoxigenic Escherichia coli, Salmonella, or Shigella. I have ordered orthostatics, to make sure that the patient has not suffered any significant fluid shifts, as well as some blood work to look for electrolyte abnormalities. In the meantime, the patient will be started on oral loperamide, IV Zofran, and some IV fluid. 09/08/19 00:29 The patient is not orthostatic. Her CBC is remarkable for a WBC count mildly elevated at 10.21, but with 0% bandemia. The remainder of her CBC is unremarkable. Her CMP is remarkable for a BUN slightly elevated at 19, with a normal creatinine of 0.9. Her blood glucose is slightly elevated at 114. The remainder of her CMP is unremarkable. Her magnesium level was within normal limits at 1.9. The patient does not appear to have suffered any significant fluid or electrolyte shifts as a result of her diarrhea. I believe she can safely be discharged home. 09/08/19 00:35 Test results discussed with the patient and her fianc. The patient states that she had another loose bowel movement after she was given the loperamide, therefore I will order an additional 2 mg of loperamide. I will submit a prescription for Zofran. Departure - Departure Time of Disposition: 00:36 Disposition: Home, Self-Care 01 Condition: Good Clinical Impression: Diarrhea, Nausea - Discharge Information *PRESCRIPTION DRUG MONITORING PROGRAM REVIEWED*: Not Applicable *COPY OF PRESCRIPTION DRUG MONITORING REPORT IN PATIENT GUY: Not Applicable Referrals: Tatum Ndiaye PA-C [Primary Care Provider] - Forms: ED Department Discharge Additional Instructions: You were seen in the emergency room after developing diarrhea, with nausea, and blood from hemorrhoids. Workup in the ER included blood work and positional blood pressure checks, all of which were normal. You are not dehydrated. You are not anemic. Your diarrhea was treated with 3 tablets of loperamide in the ER. Loperamide is available [id number]. You may take 1 tablet of loperamide after each loose bowel movement, up to a total of 8 tablets within a 24-hour period. A prescription for the anti-nausea medicine Zofran has been sent to the [facility], located in the [facility] grocery store. Dissolve one tablet of Zofran on your tongue up to every 8 hours, as needed for nausea/vomiting. Stay well hydrated. Gatorade or Powerade are best. You should avoid fruit juices and dairy products, as these may make your diarrhea worse. If you are hungry, we recommend a bland diet, such as rice, oatmeal, or toast. Chicken noodle soup with saltine crackers is an excellent choice. If your symptoms persist, please follow-up with your PCP, ANNA Velasquez. If any other problems, please do not hesitate to return to the ER. Sepsis Event Note - Evaluation Sepsis Screening Result: No Definite Risk - Focused Exam Vital Signs: Vital Signs Temp Pulse Resp BP Pulse Ox 09/07/19 21:14 36.4 C 96 18 130/84 98 Date Exam was Performed: 09/08/19 Time Exam was Performed: 00:29 - My Orders Last 24 Hours: My Active Orders 09/07/19 22:43 Orthostatic Vital Signs [RC] STAT 09/07/19 23:07 Influenza Vaccine Charge [RC] .DISCHARGE - Assessment/Plan Last 24 Hours: My Active Orders 09/07/19 22:43 Orthostatic Vital Signs [RC] STAT 09/07/19 23:07 Influenza Vaccine Charge [RC] .DISCHARGE
[2019-09-07] MEDS ORDERED: FLU Vacc QS2019-20(6MOS+)/PF 60 MCG/0.5 ML SYRINGE IM ONE (23:30)
[2019-09-08] MEDS ORDERED: Loperamide 2 MG Cap PO STA (00:35)
== END 2019-09-08 00:47 | disposition home or self-care (01) ==
LOC: JD.ED 20:38
DX: R19.7 Diarrhea, unspecified (principal); R11.0 Nausea; E78.00 Pure hypercholesterolemia, unspecified; F17.210 Nicotine dependence, cigarettes, uncomplicated; Z79.899 Other long term (current) drug therapy; Z88.0 Allergy status to penicillin; Z90.49 Acquired absence of other specified parts of digestive tract; Z90.710 Acquired absence of both cervix and uterus
CPT/HCPCS: 36415; 80053; 83735; 85007; 85027; 90686; 96374; 99284; A9270; G0008; J2405; J7120

== ENCOUNTER 2020-12-29 20:25 | Emergency (ER) | payer MEDICARE, OTHER ==
[2020-12-29 20:39] VITALS: BP 153/95; PULSE 120
[2020-12-29] MEDS ORDERED: Cefdinir 300 MG Cap PO ONE (21:05)
--- NOTE | 2020-12-29 21:12 | EDM.PDOC ---
ED HPI GENERAL MEDICAL PROBLEM - General Chief Complaint: Genitourinary Problem Stated Complaint: URINATING BLOOD Time Seen by Provider: 12/29/20 20:54 Source of Information: Reports: Patient, RN Notes Reviewed History Limitations: Reports: No Limitations - History of Present Illness INITIAL COMMENTS - FREE TEXT/NARRATIVE: Patient is a 60-year-old female who presents to the ED for evaluation of her voiding blood. Patient notes that she noticed blood in her urine roughly 1 hour ago. She does have a history of this, and was told if this happens, she should get put on an antibiotic as soon as possible. She notes she has been drinking a lot of water since then she notes that she did see blood in her underwear, she does have a hysterectomy as well. She has pain with urinating, and states that her lower abdomen is also tender. She does note a pretty extensive family history of cancer, any urinary tract, and reproductive systems. Her primary care provider Luis Martin. She denies any fevers or chills, cough or shortness of breath, or any sort of nausea/vomiting/diarrhea., to help keep her self hydrated and try to flush the blood out of her system. Bladder Pain Score (Numeric/FACES): 6 - Related Data Allergies Allergy/AdvReac Type Severity Reaction Status Date / Time Penicillins Allergy Mild Rash Verified 12/29/20 20:39 Home Meds: Home Meds Pantoprazole Sodium [Protonix] 40 mg PO BID 01/30/16 [History] atorvaSTATin Calcium [Atorvastatin Calcium] 40 mg PO DAILY 02/08/19 [History] Cefdinir [Omnicef] 300 mg PO BID 7 Days #14 cap 12/29/20 [Rx] Multivitamin [One-Daily Multi-Vitamin] 1 tab PO DAILY 12/29/20 [History] Sucralfate [Carafate] 1 gm PO DAILY 12/29/20 [History] Past Medical History HEENT History: Reports: Impaired Vision Other HEENT History: wears glasses, has upper denture Cardiovascular History: Reports: High Cholesterol Other Cardiovascular History: dependent edema. states her "heart races" when she "gets worked up" states did see a sponge hooker in 2005 or 2006. 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 s/p hysterectomy Musculoskeletal History: Reports: Fracture, Osteoarthritis Other Musculoskeletal History: L leg pain, R broken ankle with hardware Endocrine/Metabolic History: Reports: Diabetes, Type II, Obesity/BMI 30+ Dermatologic History: Reports: Other (See Below) Other Dermatologic History: L lower extremity cellulitis, rosacea, paronychia of toenail, post op sarcoma - Past Surgical History HEENT Surgical History: Reports: Cataract Surgery GI Surgical History: Reports: Appendectomy, Cholecystectomy, Colonoscopy, EGD, Hernia, Abdominal, Polypectomy, Other (See Below) Female Surgical History: Reports: Hysterectomy Musculoskeletal Surgical History: Reports: ORIF Social & Family History - Family History HEENT: Reports: Cataract Cardiac: Reports: High Cholesterol, Other (See Below) Other Cardiac Family History: baby born with heart problems who at approx 4 months of age Respiratory: Reports: Sleep Apnea OBGYN: Reports: Dysfunctional uterine bleeding Musculoskeletal: Reports: Gout, Osteoarthritis Neurological: Reports: Alzheimers Disease Endocrine/Metabolic: Reports: Diabetes, Type I Hematologic: Reports: Bleeding Disorder Oncologic: Reports: Bladder, Breast, Cervix, Colon - Tobacco Use Tobacco Use Status *Q: Current Every Day Tobacco User Years of Tobacco use: 30 Packs/Tins Daily: 0.5 - Caffeine Use Caffeine Use: Reports: Coffee - Recreational Drug Use Recreational Drug Use: No - Living Situation & Occupation Living situation: Reports: , with Significant Other (Fiance) Occupation: Employed ([employer] over[employer]) ED ROS GENERAL - Review of Systems Review Of Systems: Comprehensive ROS is negative, except as noted in HPI. ED EXAM, RENAL/ - Physical Exam Exam: See Below Exam Limited By: No Limitations General Appearance: Alert, WD/WN, No Apparent Distress Respiratory/Chest: No Respiratory Distress, Lungs Clear, Normal Breath Sounds, No Accessory Muscle Use, Chest Non-Tender Cardiovascular: Normal Peripheral Pulses, Regular Rate, Rhythm, No Edema (Female) Exam: Deferred Extremities: Normal Inspection, Normal Capillary Refill Neurological: Alert, Oriented, Normal Cognition, No Motor/Sensory Deficits Psychiatric: Normal Affect, Normal Mood Skin Exam: Warm, Dry, Intact, Normal Color, No Rash Course - Vital Signs Last Recorded V/S: Last Vital Signs Temp 98 F 12/29/20 20:32 Pulse 120 H 12/29/20 20:32 Resp 18 12/29/20 20:32 BP 153/95 H 12/29/20 20:32 Pulse Ox 95 12/29/20 20:32 - Orders/Labs/Meds Orders: Active Orders 24 hr Category Date Time Status CULTURE URINE [RM] Routine Lab 12/29/20 20:54 Ordered Labs: Laboratory Tests 12/29/20 Range/Units 20:35 Urine Color Light yellow (Yellow) Urine Appearance Clear (Clear) Urine pH 6.5 (5.0-8.0) Ur Specific [place] 1.010 (1.005-1.030) Urine Protein Negative (Negative) Urine Glucose (UA) Negative (Negative) Urine Ketones Negative (Negative) Urine Occult Blood 2+ H (Negative) Urine Nitrite Negative (Negative) Urine Bilirubin Negative (Negative) Urine Urobilinogen 0.2 (0.2-1.0) Ur Leukocyte Esterase Negative (Negative) Urine RBC 10-20 H (0-5) /hpf Urine WBC 0-5 (0-5) /hpf Ur Squamous Epith Cells 0-5 (0-5) /hpf Urine Bacteria Few (FEW) /hpf Urine Mucus Few (FEW) /hpf Meds: Medications Discontinued Medications Generic Name Dose Route Start Last Admin Trade Name Freq PRN Reason Stop Dose Admin Cefdinir 300 mg 12/29/20 21:05 Cefdinir 300 Mg Cap PO 12/29/20 21:06 ONETIME ONE - Re-Assessments/Exams Free Text/Narrative Re-Assessment/Exam: 12/29/20 21:10 Patient presents to the ER for her blood in her urine. Her urinalysis does demonstrate 10-20 red blood cells in her urinary sample. She does appear to have a hemorrhagic cystitis in nature she is symptomatic with dysuria. We will go ahead and treat her with Omnicef and have her follow-up with Luis Martin in clinic for ongoing management regarding further genetic testing for her extensive history of cancer in her family. Departure - Departure Time of Disposition: 21:12 Disposition: Home, Self-Care 01 Condition: Good Clinical Impression: UTI (urinary tract infection) Qualifiers: Urinary tract infection type: acute cystitis Hematuria presence: with hematuria Qualified Code(s): N30.01 - Acute cystitis with hematuria - Discharge Information *PRESCRIPTION DRUG MONITORING PROGRAM REVIEWED*: No *COPY OF PRESCRIPTION DRUG MONITORING REPORT IN PATIENT GUY: No Prescriptions: Cefdinir [Omnicef] 300 mg PO BID 7 Days #14 cap Instructions: Urinary Tract Infection, Adult, [id number] Referrals: Luis Martin PA-C [Primary Care Provider] - Forms: ED Department Discharge Additional Instructions: You have been evaluated in the ED for your urinary symptoms. Your urinalysis was consistent with an acute urinary tract infection. Your urine was sent for culture, and you will be notified if you should need a change in your antibiotic. This may take up to 48 hours to result. You may take AZO for urinary pain relief. This is available over the counter, and can be attained at any retail store like [employer] or any pharmacy. Please be aware that this medication will make your urine turn orange. You have been given a prescription for Omnicef (cefdinir), 300 mg 1 tablet 2 times a day for 7 days. Please note that the antibiotics can take up to 48 hours to start working. This medication was electronically sent to the [place] pharmacy located in the [facility] grocery store. Please increase your oral fluid intake and try to stay adequately hydrated. Recommend you follow-up with Luis Martni, in clinic sometime this week, to talk with them about the possibility of having genetic testing for your extensive familial history of cancer. This is of course if you have not already had this done in your past medical history. Luis Martin would be able to also refer you to urology, for cystoscopy or further management if warranted. Please return to the ED if your symptoms change or worsen. Sepsis Event Note (ED) - Evaluation Sepsis Screening Result: No Definite Risk - Focused Exam Vital Signs: Vital Signs Temp Pulse Resp BP Pulse Ox 12/29/20 20:32 98 F 120 H 18 153/95 H 95 - My Orders Last 24 Hours: My Active Orders 12/29/20 20:54 CULTURE URINE [RM] Routine - Assessment/Plan Last 24 Hours: My Active Orders 12/29/20 20:54 CULTURE URINE [RM] Routine
== END 2020-12-29 21:30 | disposition home or self-care (01) ==
LOC: JD.ED 20:25
DX: N30.01 Acute cystitis with hematuria (principal); E78.00 Pure hypercholesterolemia, unspecified; J44.9 Chronic obstructive pulmonary disease, unspecified; E11.9 Type 2 diabetes mellitus without complications; E66.9 Obesity, unspecified; Z68.43 Body mass index [BMI] 50.0-59.9, adult; Z88.0 Allergy status to penicillin
CPT/HCPCS: 81001; 87086; 99283; A9270

== ENCOUNTER 2021-06-18 08:14 | Emergency (ER) | payer MEDICARE, OTHER ==
[2021-06-18 08:40] VITALS: BP 148/95; PULSE 84
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
== END 2021-06-18 10:30 | disposition home or self-care (01) ==
LOC: JD.ED 08:14
DX: R04.0 Epistaxis (principal); E78.00 Pure hypercholesterolemia, unspecified; J44.9 Chronic obstructive pulmonary disease, unspecified; E11.9 Type 2 diabetes mellitus without complications; E66.9 Obesity, unspecified; Z68.43 Body mass index [BMI] 50.0-59.9, adult; Z86.718 Personal history of other venous thrombosis and embolism; Z88.0 Allergy status to penicillin; Z79.01 Long term (current) use of anticoagulants; Z79.899 Other long term (current) drug therapy
CPT/HCPCS: 30901; 99283-25

== ENCOUNTER 2021-10-29 10:56 | Emergency (ER) | payer MEDICARE, OTHER ==
[2021-10-29 11:29] VITALS: BP 148/77
[2021-10-29] MEDS ORDERED: Sodium Chloride 0.9% 10 ML Syringe FLUSH PRN ×2 (11:36→12:59)
[2021-10-29] MEDS ORDERED: Iopamidol 755 Mg/ML 100 ML Bottle IVPUSH ONE (12:59)
[2021-10-29] MEDS ORDERED: Sodium Chloride 0.9% 1,000 ML IV ONE (13:00)
[2021-10-29] MEDS ORDERED: Sodium Chloride 0.9% 100 ML IV SCH (13:00)
[2021-10-29 15:52] VITALS: PULSE 82
== END 2021-10-29 14:35 | disposition home or self-care (01) ==
LOC: JD.ED 10:56
DX: R04.2 Hemoptysis (principal); E78.00 Pure hypercholesterolemia, unspecified; J44.9 Chronic obstructive pulmonary disease, unspecified; K21.9 Gastro-esophageal reflux disease without esophagitis; E11.9 Type 2 diabetes mellitus without complications; E66.9 Obesity, unspecified; Z68.43 Body mass index [BMI] 50.0-59.9, adult; Z88.0 Allergy status to penicillin; Z79.01 Long term (current) use of anticoagulants; Z79.84 Long term (current) use of oral hypoglycemic drugs; Z79.899 Other long term (current) drug therapy
CPT/HCPCS: 36415; 71275; 71275-26; 80053; 84484; 85025; 85379; 86140; 93005; 93010; 99285; 99285-25; J7030; Q9967

== ENCOUNTER 2022-03-05 12:19 | Emergency (ER) | payer MEDICARE, OTHER ==
[2022-03-05 13:09] VITALS: BP 146/110; PULSE 98
[2022-03-05] MEDS ORDERED: Dextrose 5%-0.9% NaCl 1,000 ML IV SCH (14:15)
[2022-03-05 15:19] LABS: CORONAVIRUS COVID-19 NAA NEGATIVE (NEGATIVE)
[2022-03-05] MEDS ORDERED: Albuterol/Ipratropium 3.0-0.5 MG/3 ML Neb Soln NEB PRN (15:43)
== END 2022-03-05 17:00 | disposition home or self-care (01) ==
LOC: JD.ED 12:19
DX: J20.9 Acute bronchitis, unspecified (principal); E78.00 Pure hypercholesterolemia, unspecified; K21.9 Gastro-esophageal reflux disease without esophagitis; E11.9 Type 2 diabetes mellitus without complications; E66.9 Obesity, unspecified; Z68.42 Body mass index [BMI] 45.0-49.9, adult; Z88.0 Allergy status to penicillin; Z79.899 Other long term (current) drug therapy; Z79.84 Long term (current) use of oral hypoglycemic drugs; Z79.82 Long term (current) use of aspirin; Z20.822 Contact with and (suspected) exposure to COVID-19
CPT/HCPCS: 0240U; 36415; 80053; 81001; 83615; 83735; 83880; 85007; 85027; 85379; 85610; 85730; 86140; 87040; 93005; 94640; 96360; 96361; 99283; J7042; 93010; 99284; J7620-GY

== ENCOUNTER 2023-03-18 17:18 | Emergency (ER) | payer MEDICARE ==
[2023-03-18 18:04] LABS: BASOPHILS ABSOLUTE AUTO 0.01 K/mm3 (0.01-0.08); BASOPHILS PERCENT AUTO 0.1 % (0.1-1.2); EOSINOPHILS ABSOLUTE AUTO 0.28 K/mm3 (0.04-0.36); EOSINOPHILS PERCENT AUTO 3.6 (0.7-5.8); HEMATOCRIT 41.4 % (34.1-44.9); HEMOGLOBIN 13.5 gm/dl (11.2-15.7); IMMATURE GRAN ABSOLUTE AUTO 0.02 K/mm3 (0.00-0.10); IMMATURE GRAN PERCENT AUTO 0.3 % (<=1.0); LYMPHOCYTES ABSOLUTE AUTO 2.71 K/mm3 (1.18-3.74); LYMPHOCYTES PERCENT AUTO 34.7 % (19.3-51.7); MEAN CORPUSCULAR HEMOGLOBIN 29.2 pg (25.6-32.2); MEAN CORPUSCULAR HGB CONC 32.6 g/dl (32.2-35.5); MEAN CORPUSCULAR VOLUME 89.4 fl (79.4-94.8); MEAN PLATELET VOLUME 10.6 fl (9.4-12.3); MONOCYTES ABSOLUTE AUTO 0.64 K/mm3 (0.24-0.36); MONOCYTES PERCENT AUTO 8.2 % (4.7-12.5); NEUTROPHILS ABSOLUTE AUTO 4.15 K/mm3 (1.56-6.13); NEUTROPHILS PERCENT AUTO 53.1 % (34.0-71.1); PLATELET COUNT,PLT 173 K/mm3 (182-369); RED BLOOD CELL COUNT 4.63 M/mm3 (3.98-5.22); WHITE BLOOD CELL COUNT,WBC 7.81 K/mm3 (3.98-10.04)
[2023-03-18] MEDS ORDERED: Iopamidol 755 Mg/ML 100 ML Bottle IVPUSH ONE (18:38)
[2023-03-18 18:39] LABS: A/G RATIO 0.8 (1-2); BILIRUBIN TOTAL 0.4 mg/dL (0.2-1.0); BUN/CREATININE RATIO 16.7 (14-18); C-REACTIVE PROTEIN 0.4 mg/dL (<1.0); CALCIUM 9.2 mg/dL (8.5-10.1); CREATININE 0.9 mg/dL (0.55-1.02); EST CRCL DRUG DOSING (CG) 55.25 mL/min; PROTEIN TOTAL,TP 6.8 g/dl (6.4-8.2)
[2023-03-18] MEDS: Sodium Chloride 0.9% 10 ML Syringe FLUSH PRN ×2 (18:41→19:00)
[2023-03-18] MEDS ORDERED: Sodium Chloride 0.9% 45 ML IV SCH (18:45)
[2023-03-18] MEDS ORDERED: Rivaroxaban 15 MG Tab PO ONE (19:54)
[2023-03-18] MEDS ORDERED: Rivaroxaban 15 MG Tab PO SCH (20:00)
[2023-03-18 20:26] VITALS: BP 170/93; PULSE 68
== END 2023-03-18 20:42 | disposition home or self-care (01) ==
LOC: JD.ED 17:18
DX: I26.94 Multiple subsegmental thrombotic pulmonary emboli without acute cor pulmonale (principal); E78.00 Pure hypercholesterolemia, unspecified; J44.9 Chronic obstructive pulmonary disease, unspecified; E11.9 Type 2 diabetes mellitus without complications; E66.9 Obesity, unspecified; Z88.0 Allergy status to penicillin; Z79.01 Long term (current) use of anticoagulants; Z86.718 Personal history of other venous thrombosis and embolism; Z86.711 Personal history of pulmonary embolism; Z79.51 Long term (current) use of inhaled steroids; Z79.84 Long term (current) use of oral hypoglycemic drugs; Z79.899 Other long term (current) drug therapy; Z68.43 Body mass index [BMI] 50.0-59.9, adult
CPT/HCPCS: 36415; 71045; 71275; 80053; 83735; 83880; 84484; 85025; 85379; 86140; 93005; 99285; A9270; J3490; Q9967; 93010; 99284

== ENCOUNTER 2024-10-19 12:14 | Emergency (ER) | payer MEDICARE, OTHER ==
[2024-10-19] MEDS: Sodium Chloride 0.9% 10 ML Syringe FLUSH PRN (13:36)
[2024-10-19 13:39] LABS: BASOPHILS PERCENT AUTO 0.1 % (0.0-1.0); EOSINOPHILS ABSOLUTE AUTO 0.2 K/mm3 (0.0-0.4); EOSINOPHILS PERCENT AUTO 2.3 % (0.0-6.0); IMMATURE GRAN ABSOLUTE AUTO 0.07 K/mm3 (0.00-0.05); IMMATURE GRAN PERCENT AUTO 0.8 % (0.0-0.4); LYMPHOCYTES ABSOLUTE AUTO 2.9 K/mm3 (1.0-4.8); LYMPHOCYTES PERCENT AUTO 32.7 % (24.0-44.0); MEAN CORPUSCULAR HEMOGLOBIN 28.8 pg (28.0-32.0); MEAN CORPUSCULAR HGB CONC 32.6 g/dl (32.0-36.0); MEAN CORPUSCULAR VOLUME 88.5 fl (83.0-99.0); MEAN PLATELET VOLUME 10.8 fl (9.4-12.3); MONOCYTES ABSOLUTE AUTO 0.8 K/mm3 (0.0-0.8); MONOCYTES PERCENT AUTO 9.4 % (0.0-8.0); NEUTROPHILS ABSOLUTE AUTO 4.8 K/mm3 (1.8-7.7); NEUTROPHILS PERCENT AUTO 54.7 % (41.0-71.0); PLATELET COUNT,PLT 188 K/mm3 (150-400); RED BLOOD CELL COUNT 4.86 M/mm3 (4.10-5.30); WHITE BLOOD CELL COUNT,WBC 8.81 K/mm3 (3.9-11.3)
[2024-10-19 14:02] LABS: A/G RATIO 0.8 (1-2); ALBUMIN 3.2 g/dl (3.4-5.0); ANION GAP 13.2 (5-15); BILIRUBIN TOTAL 0.4 mg/dL (0.2-1.0); C-REACTIVE PROTEIN 0.78 mg/dL (<0.30); CALCIUM 9.4 mg/dL (8.5-10.1); EST CRCL DRUG DOSING (CG) 49.08 mL/min; POTASSIUM,K 4.2 mEq/L (3.5-5.1); PROTEIN TOTAL,TP 7.3 g/dl (6.4-8.2)
[2024-10-19 14:11] LABS: APPEARANCE,URINE CLEAR (Clear); BILIRUBIN,URINE NEGATIVE (Negative); COLOR,URINE YELLOW (Yellow); GLUCOSE,URINE NEGATIVE (Negative); KETONES,URINE NEGATIVE (Negative); LEUKOCYTE ESTERASE,URINE NEGATIVE (Negative); NITRITE,URINE NEGATIVE (Negative); OCCULT BLOOD,URINE NEGATIVE (Negative); PH,URINE 5.5 (5.0-8.0); PROTEIN,URINE NEGATIVE (Negative); UROBILINOGEN,URINE 0.2 (0.2-1.0)
[2024-10-19 17:11] VITALS: BP 133/65; PULSE 69
== END 2024-10-19 15:32 | disposition home or self-care (01) ==
LOC: JD.ED 12:14
DX: M54.50 Low back pain, unspecified (principal); E78.00 Pure hypercholesterolemia, unspecified; K21.9 Gastro-esophageal reflux disease without esophagitis; E11.9 Type 2 diabetes mellitus without complications; E66.9 Obesity, unspecified; Z68.43 Body mass index [BMI] 50.0-59.9, adult; Z90.49 Acquired absence of other specified parts of digestive tract; Z90.710 Acquired absence of both cervix and uterus; Z87.891 Personal history of nicotine dependence; Z88.0 Allergy status to penicillin; Z79.51 Long term (current) use of inhaled steroids; Z79.01 Long term (current) use of anticoagulants; Z79.84 Long term (current) use of oral hypoglycemic drugs; Z79.899 Other long term (current) drug therapy
CPT/HCPCS: 36415; 80053; 81003; 85025; 86140; 99283